=== PATIENT | male | born 1975 | race Two or more races ===

== ENCOUNTER 2022-05-03 09:59 | Emergency (ER) | payer OTHER ==
[~2022-05-03] VITALS: Ht 177.8 cm; Wt 81.6 kg
[2022-05-03 10:09] VITALS: BP 102/67
[2022-05-03] MEDS ORDERED: SODIUM CHLORIDE 0.9% 1,000 ML IV ONE (10:30)
[2022-05-03 11:08] LABS: Basophils # (auto) 0.1 10 ^3/uL (0-0.2); Eosinophils # (auto) 0.2 10 ^3/uL (0-0.8); Eosinophils % (auto) 3.4 % (0.0-7.0); Hematocrit 37.6 % (41.0-53.0); Hemoglobin 12.6 g/dL (13.5-17.5); Lymphocytes # (auto) 1.2 10 ^3/uL (0.4-5.4); Lymphocytes % (auto) 21.1 % (10.0-50.0); Mean Corpuscular Hemoglobin 29.2 pg (28.0-32.0); Mean Corpuscular Hgb Conc. 33.5 g/dL (32.0-36.0); Mean Corpuscular Volume 87.3 fL (80.0-100.0); Monocytes # (auto) 0.4 10 ^3/uL (0-1.3); Monocytes % (auto) 7.5 % (0.0-12.0); Neutrophils # (auto) 3.9 10 ^3/uL (1.6-8.6); Nucleated Red Blood Cells % 0.1 %; Red Cell Distribution Width 12.9 % (11.8-14.3); White Blood Cell 5.8 10^3/uL (4.4-10.8)
[2022-05-03 11:17] LABS: INR 1.09 (0.9-1.15); Partial Thromboplastin Time 26.5 sec (23.6-33.0)
[2022-05-03 11:21] LABS: Albumin 3.3 g/dL (3.4-5.0); Calcium 8.1 mg/dL (8.5-10.1); Potassium 3.6 mmol/L (3.5-5.1)
[2022-05-03 11:30] LABS: BUN/Creatinine Ratio 13.9; Bilirubin, Total 0.6 mg/dL (0.2-1.0); Total Protein 6.4 g/dL (6.4-8.2)
== END 2022-05-03 13:54 | disposition home or self-care (01) ==
LOC: EDBD 09:59 → ER 09:59 → EEVIPCON 09:59 → ER 13:54
DX: I83.891 Varicose veins of right lower extremity with other complications (principal)
CPT/HCPCS: 36415; 80053; 84484; 85025; 85610; 85730; 93926; 96360; 96361; 99284; J7030

== ENCOUNTER 2022-06-29 17:07 | Emergency (ER) | payer OTHER ==
[~2022-06-29] VITALS: Ht 177.8 cm; Wt 88.6 kg
[2022-06-30 00:58] VITALS: BP 149/89
== END 2022-06-30 01:13 | disposition home or self-care (01) ==
LOC: ER 17:12 → EEVIPCON 17:12 → ER 23:29
DX: I83.899 Varicose veins of unspecified lower extremity with other complications (principal)